=== PATIENT | female | born 1945 | race Caucasian/White ===

== ENCOUNTER 2020-12-13 06:28 | Day surgery (SDC) | payer MEDICARE, OTHER ==
[2020-12-06 11:33] LABS: BASOPHILS # (AUTO) 0.1 X10'3 (0-0.2); BASOPHILS % (AUTO) 1.3 % (0-1); EOSINOPHILS # (AUTO) 0.2 X10'3 (0-0.9); EOSINOPHILS % (AUTO) 3.5 % (0-6); LYMPHOCYTES # (AUTO) 2.1 X10'3 (1.1-4.8); LYMPHOCYTES % (AUTO) 35.8 % (21-51); MEAN CORPUSCULAR HEMOGLOBIN 30.6 PG (27.0-31.0); MEAN CORPUSCULAR HGB CONC 33.5 g/dL (33.0-36.5); MEAN CORPUSCULAR VOLUME 91.5 FL (78-98); MEAN PLATELET VOLUME 9.2 FL (7.4-10.4); MONOCYTES # (AUTO) 0.6 X10'3 (0-0.9); MONOCYTES % (AUTO) 10.1 % (2-12); NEUTROPHILS % (AUTO) 49.3 % (42-75); PRE OP HEMATOCRIT 40.2 % (35.0-45.0); PRE OP HEMOGLOBIN 13.5 g/dL (12.0-16.0); PRE OP PLATELET COUNT 204 X10'3 (140-440); RED CELL DISTRIBUTION WIDTH 13.3 % (11.5-14.5)
[2020-12-06 11:47] LABS: ALBUMIN 3.9 G/DL (3.4-5.0); ALBUMIN/GLOBULIN RATIO 1.1 (1.1-1.5); ALKALINE PHOSPHATASE 55 IU/L (46-116); BLOOD UREA NITROGEN 19 MG/DL (7-18); CALCIUM 9.1 MG/DL (8.5-10.1); CHLORIDE 103 MMOL/L (99-107); PRE OP ALT 18 U/L (30-65); PRE OP ANION GAP 8 (8-16); PRE OP AST 28 U/L (10-37); PRE OP BILIRUB, TOTAL 0.9 MG/DL (0.0-1.0); PRE OP GLUCOSE 96 MG/DL (70-104); PRE OP SODIUM 140 MMOL/L (135-145); TOTAL CARBON DIOXIDE 28.6 MMOL/L (24-32); TOTAL PROTEIN 7.6 G/DL (6.4-8.2); eGFR 54 ML/MIN
[2020-12-13] VITALS (8 sets, daily range): BP systolic 90–135; BP diastolic 68–94
[~2020-12-13] VITALS: Ht 170.2 cm; Wt 66.9 kg
[~2020-12-13 06:28] MED LIST: BUPR300T7 PO; ESCI20TA39 PO; LEVO75TA PO; MULTIVITAMIN PACK PO; TRAZ-251 PO; albuterol 2.5 MG/3 ML nebule NEB ONE; clindamycin-Cleocin 900mg/D5W 50 ML IV ONE; famotidine 20mg tablet PO ONE; ringers solution, lacted 1,000 ML IV SCH
[2020-12-13] MEDS ORDERED: meperidine/PF 25mg/ml syringe IV PRN ×3 (07:25)
[2020-12-13] MEDS ORDERED: morphine 2 MG/ML inj. syringe IV PRN (07:25)
[2020-12-13] MEDS ORDERED: morphine 4 MG/ML inj SYRINge IV PRN (07:25)
[2020-12-13] MEDS ORDERED: ondansetron/PF 4mg/2ml inj IV PRN (07:25)
[2020-12-13] MEDS ORDERED: proCHLORperazine 10 MG/2 ml inj IV PRN (07:25)
[2020-12-13] MEDS ORDERED: ringers solution, lacted 1,000 ML IV SCH (07:25)
[2020-12-13] MEDS ORDERED: BUPIVAcaine/PF 2.5mg/ml (0.25%) 10ml vial ONE (09:15)
[2020-12-13] MEDS ORDERED: fentaNYL/PF 50MCG/1 ML 2ML syringe ONE (09:18)
[2020-12-13] MEDS ORDERED: midazolam 1 mg/ML 2ml injection ONE (09:18)
[2020-12-13] MEDS ORDERED: LIDOcaine 0.5% (5mg/ml) 50ml vial ONE (09:21)
--- NOTE | 2020-12-13 09:44 | NUR ---
Received from OR via [facility], accompanied by Anesthesiologist DR. LEONG and report given by Anesthesiolgist. PATIENT IN STABLE CONDITION. PATIENT DENIES ANY PAIN. Addendum: 12/13/20 at 1148 by Mary Miner RN Amended: Links added.
--- NOTE | 2020-12-13 10:54 | NUR ---
PATIENT DISCHARGED HOME AFTER GIVEN WRITTEN AND VERBAL DISCHARGE INSTRUCTIONS. PATIENT GAVE VERBAL UNDERSTANDING OF INSTRUCTIONS GIVEN. PATIENT AMBULATED TO WHEELCHAIR FOR DISCHARGE. PATIENT LEFT FACILITY IN PRIVATE VEHICLE WITHOUT INCIDENCE. Addendum: 12/13/20 at 1156 by Mary Miner RN Amended: Links added.
== END 2020-12-13 10:54 | disposition home or self-care (01) ==
LOC: PAS 06:28
PROVIDERS: ATTEND Orthopaedic Surgery Hand Surgery
DX: M65.4 Radial styloid tenosynovitis [de Quervain] (principal); M19.032 Primary osteoarthritis, left wrist; F41.9 Anxiety disorder, unspecified; F32.9 Major depressive disorder, single episode, unspecified; E03.9 Hypothyroidism, unspecified; Z79.899 Other long term (current) drug therapy; Z88.1 Allergy status to other antibiotic agents; Z88.2 Allergy status to sulfonamides; Z90.710 Acquired absence of both cervix and uterus; Z98.890 Other specified postprocedural states; Z96.653 Presence of artificial knee joint, bilateral; Z96.612 Presence of left artificial shoulder joint; Z87.891 Personal history of nicotine dependence
CPT/HCPCS: 25000; 36415; 80053; 82948; 85025; 93005; J2001; J2250; J3010; J3490; A4215; J7120